=== PATIENT | female | born 1970 | race Caucasian/White ===

== ENCOUNTER 2017-03-09 08:01 | Inpatient (IN) | payer OTHER ==
--- NOTE | 2017-02-23 13:49 | HP ---
Admitting History and Physical - Primary Care Physician PCP: Jerrell Cohen - Admission Chief Complaint: High risk Breast cancer History of Present Illness: 46 year old premenapausal female of Ashkenazi heritage. She has a strong family H/O breast cancer. Her mother and maternal aunt both had breast cancer at ages 55 and 59 respectively. Her paternal grandmother also passed from breast cancer. Breast MRI 12/2016 [facility] 2 dense breast tissue and limited due to exstensive parenchymal enhancement. Feb 2016 an [facility] showed density left breast subareolar region which was biopsied and found to be a radial scar.She underwent excision 05/2016 and showed ruptured cyst fibroadenoma without atypia. Bilateral mammogram 05/2016 birad 2. History Source: Patient Limitations to Obtaining History: No Limitations - Past Medical History [employer]: Yes: Other (RLS and insomnia) - Past Surgical History Past Surgical History: Yes: Additional Past Surgical History: Left breast wide excision 2017 benign - Smoking History Smoking history: Never smoked Have you smoked in the past 12 months: No - Alcohol/Substance Use Hx Alcohol Use: Yes (3 per week) Home Medications - Allergies Allergies/Adverse Reactions: Allergies Allergy/AdvReac Type Severity Reaction Status Date / Time ampicillin Allergy Verified 02/23/17 13:51 Latex, Natural Rubber Allergy Verified 02/23/17 13:51 - Home Medications Home Medications (free text): gabapentin,alprazolam,norethinadrone Family Disease History - Family Disease History Family Disease History: CA: Grandparent (breast ca ), Mother (breast ca 55) Other Family History: mat aunt breast ca 59 Physical Examination Constitutional: Yes: Well Nourished Breast(s): Yes: Other (A cup breast with a well healed incision left breast superior periareolar incision from her biopsy no palpable dnesities bilaterally or adenopathy) Problem List - Problems (1) At high risk for breast cancer Code(s): Z91.89 - [facility] PERSONAL RISK FACTORS, NOT ELSEWHERE CLASSIFIED Assessment/Plan Bilateral total nipple sparing mastectomies with alloderm and implants
[2017-03-03 10:15] VITALS: BMI 18.5
[2017-03-09] MEDS ORDERED: fentaNYL CITRATE 250 MCG/5 ML VIAL ONE (08:45)
[2017-03-09] MEDS ORDERED: ePHEDrine SULFATE 50 MG/1 ML AMPULE ONE (08:45)
[2017-03-09] MEDS ORDERED: PROPOFOL 20 ML ONE ×3 (08:45→12:30)
[2017-03-09] MEDS ORDERED: SUCCINYLCHOLINE CHLORIDE 200 MG/10 ML VIAL ONE (08:46)
[2017-03-09] MEDS ORDERED: MIDAZOLAM HCL 2 MG/2 ML SINGLE DOSE VIAL ONE ×2 (08:46→09:04)
[2017-03-09] MEDS ORDERED: ROCURONIUM BROMIDE 50 MG/5 ML VIAL ONE ×3 (08:46→11:31)
[2017-03-09] MEDS ORDERED: LIDOCAINE HCL/PF 2% SDV 5ML VIAL ONE (08:49)
[2017-03-09] MEDS ORDERED: DEXAMETHASONE SOD PHOSPHATE 4 MG/1 ML VIAL ONE (08:49)
[2017-03-09] MEDS ORDERED: KETOROLAC TROMETHAMINE 30 MG/1 ML VIAL ONE (08:49)
[2017-03-09] MEDS ORDERED: ONDANSETRON 4 MG/2 ML VIAL ONE (08:49)
[2017-03-09] MEDS ORDERED: DEXAMETHASONE SOD PHOSPHATE/PF 10 MG/ML SDV ONE (09:03)
[2017-03-09] MEDS ORDERED: ROPIVACAINE HCL 0.5% 30ML VIAL ONE (09:04)
[2017-03-09] MEDS ORDERED: SCOPOLAMINE HYDROBROMIDE 1 PATCH PATCH.TD72 ONE (09:31)
[2017-03-09] MEDS ORDERED: ONDANSETRON 4 MG/2 ML VIAL IVPUSH PRN (12:07)
[2017-03-09] MEDS ORDERED: ACETAMINOPHEN 325 MG TABLET (FP) PO PRN (12:07)
[2017-03-09] MEDS ORDERED: ZOLPIDEM TARTRATE 5 MG TABLET PO PRN (12:07)
[2017-03-09] MEDS ORDERED: NEOSTIGMINE METHYLSULFATE 0.5 MG/ML - 10 ML MDV ONE (12:48)
[2017-03-09] MEDS ORDERED: LACTATED RINGERS SOLUTION 1,000 ML IV SCH (13:30)
[2017-03-09] MEDS ORDERED: oxyCODONE HCL 5 MG TABLET PO PRN (13:30)
[2017-03-09] MEDS ORDERED: ACETAMINOPHEN 325 MG TABLET (FP) ONE (13:50)
[2017-03-09] MEDS: ACETAMINOPHEN 325 MG TABLET (FP) PO SCH ×2 (13:50→20:46)
[2017-03-09] MEDS ORDERED: traMADol HCL 50 MG TABLET ONE (13:51)
[2017-03-09] MEDS: traMADol HCL 50 MG TABLET PO SCH ×2 (13:58→20:45)
[2017-03-09] MEDS: DEXTROSE 5%-0.45% SALINE 1,000 ML IV SCH (16:33)
--- NOTE | 2017-03-09 17:08 | OP ---
DATE OF OPERATION: 03/09/2017 PREOPERATIVE DIAGNOSIS: High risk for breast cancer with strong family history. POSTOPERATIVE DIAGNOSIS: High risk for breast cancer with strong family history. PROCEDURE: Bilateral total nipple-sparing mastectomies through an inframammary approach with bilateral direct-implant reconstructions with AlloDerm. ANESTHESIA: General endotracheal. PRIMARY SURGEON: Tramaine Schafer MD COVER OPERATOR: ALILE Penny PRIMARY SURGEON FOR THE BILATERAL DIRECT-IMPLANT RECONSTRUCTIONS WITH ALLODERM: Tramaine Thomas MD, with his speech pathology assistant, ALLIE Gage. COMPLICATIONS: None. Briefly, the patient is a 46-year-old, G2, P2, premenopausal white female of Ashkenazi-Episcopal heritage. She has a strong family history with her mother who had breast cancer at age 55, as well as a paternal grandmother who from breast cancer and a maternal aunt who had breast cancer at age 59. The patient herself tested BRCA negative in 2012. She has been getting close followup, and most recently underwent a left breast excision for a radial scar and was found to have a small fibroadenoma as well. The patient understood her increased risk for breast cancer and understood her options of just close surveillance but wanted to move forward with prophylactic risk-reduction mastectomy. She understood all risks and complications of the procedure including risks of skin flap necrosis, nipple loss, hematoma, and infection, which were all described to the patient, and she wanted to proceed with risk-reduction mastectomies. She was seen by the plastic surgeon preoperatively and understood the direct-implant reconstruction. She understood that we do retroareolar biopsies at the time of surgery, and as long as these biopsies show no cancer, we would spare the nipples. She understood the lack of any evidence shown for doing prophylactic sentinel lymph node biopsy. The patient was brought in for the procedure on March 09, 2017. In the holding area, site verification was made, and informed consent was obtained. She was marked preoperatively by the plastic surgeon. She did undergo bilateral pectoral nerve block in the holding area for postoperative pain control. DESCRIPTION OF PROCEDURE: She was then brought into the operating room, laid on the OR table in the supine position. Venodynes were placed on the lower extremities prior to induction. She did receive a gram of Ancef prior to incision. Both breasts were sterilely prepped and draped in the usual fashion. The left nipple-sparing mastectomy was first performed. An 8-cm incision was made just on the inframammary fold of the left breast and skin edges were everted and the breast was retracted inferiorly using Alloway clamps. The PEAK radiofrequency device was used to raise the skin flap superiorly to the level of the clavicle, medially to the level of the sternum, laterally to the level of the latissimus, and inferiorly below the level of the inframammary fold. The breast was taken down off the pectoralis major muscle using electrocautery from inferomedial to superolateral, completely removed intact. It was oriented with a long lateral, short superior suture and weighed to allow for appropriate cosmetic result. Retroareolar biopsy was taken underneath the left nipple-areolar complex, sent for frozen section, came back negative; so, the nipple was spared. Hemostasis was achieved, and the wound was copiously irrigated with warm sterile saline. At this point, the right mastectomy was performed, again through an inframammary approach, about an 8-cm incision in the inframammary fold. Again, the skin edges were everted, and the breast was retracted inferiorly using Grant clamps. The skin flap was raised using the PEAK radiofrequency device, raising the flap superiorly to the level of the clavicle, medially to the level of the sternum, laterally to the level of the latissimus, and inferiorly below the level of the inframammary fold. The breast was taken down off the pectoralis major muscle from inferomedial to superolateral, completely removed intact. It was oriented with a long lateral, short superior suture and weighed to allow for appropriate cosmetic result. Hemostasis was achieved, and the wound was copiously irrigated with warm sterile saline. A retroareolar biopsy was taken underneath the right nipple-areolar complex, sent for frozen section. It came back negative; so, the right nipple was spared as well. At this point, Dr. Thomas became the primary surgeon and performed bilateral direct-implant reconstructions in the subpectoral location using AlloDerm to allow for the 1-step reconstruction. Two Chuck drains were placed around each implant, brought through separate stab incisions on the lateral skin flaps, and secured in place using 3-0 nylon suture. All wounds were closed by Plastic Surgery using interrupted 3-0 deep dermal PDS suture and a running 4-0 subcuticular PDS suture. Mastisol and Steri-Strips were applied over the wounds, and the patient was placed in a compressive bra postoperatively. We did use the Spy skin perfusion device during the case, and there was some slight decreased perfusion around the inferior aspect around the left nipple, but this all filled in at about 1-1/2 minutes. The patient was placed in a surgical bra postoperatively after the wounds were closed. She was extubated and brought to the postanesthesia care unit in stable condition. Estimated blood loss was about 50 mL, and she was hemodynamically stable throughout. The patient will be recovered in the postanesthesia care unit and then be admitted postoperatively for pain management and wound management. Again, all sponge and needle counts were correct at the end of the case. TRAMAINE SCHAFER M.D. [id number]
[2017-03-09] MEDS ORDERED: GABAPENTIN 100 MG CAPSULE (FP) PO SCH (22:00)
[2017-03-09] MEDS ORDERED: PROGESTERONE MICRONIZED 100 MG PO SCH (22:00)
[2017-03-09] MEDS ORDERED: [UNRECOGNIZED DRUG - OTHER] PO SCH (22:00)
[2017-03-10] MEDS: traMADol HCL 50 MG TABLET PO SCH ×2 (03:15→09:24)
[2017-03-10] MEDS: ACETAMINOPHEN 325 MG TABLET (FP) PO SCH ×3 (03:15→14:21)
--- NOTE | 2017-03-10 07:25 | OP ---
DATE OF OPERATION: 03/09/2017 SURGEON: Tramaine Thomas MD PLANNING DIRECTOR SURGEON: Eugenio Taylor PA-C PREOPERATIVE DIAGNOSIS: Bilateral acquired chest wall deformity status post bilateral mastectomy. PROCEDURE: 1. Right immediate breast reconstruction utilizing immediate insertion of silicone breast implant and DermACELL reconstruction. 2. Left immediate breast reconstruction utilizing immediate insertion of silicone breast implant and DermACELL reconstruction. 3. Intravenous injection of isocyanide green dye and intraoperative diagnostic evaluation of non-coronary intraoperative fluorescein vascular angiography x 2. ANESTHESIA: GENERAL OPERATIVE PROCEDURE IN DETAIL: The patient was taken to the operating room. After induction of general anesthesia in the supine position, both arms were extended and padded. Venodyne boots were placed. The entire chest wall was painted with ChloraPrep solution over its entire extent, and sterile drapes were placed in the usual fashion. The markings, which had been made in the standing position preoperatively, were reoutlined with the patient's knowledge. Time-out procedure was performed. Attention was turned by Dr. Tramaine Cohen to the mastectomies. Bilateral inframammary incisions were made and Dr. Cohen performed mastectomies. This will be dictated under separate cover. Upon completion of the mastectomies, the wounds were copiously irrigated and attention was turned to the right breast. A subpectoral dissection was begun on the right breast, superiorly from the second rib, medially to the sternal fibers, and down to the inframammary fold, elevating the pectoralis major muscle from its insertion. At this point, an 8.0 x 16.0 AlloDerm Contour Perforated Medium sheet was brought into the field and sutured superiorly along the pectoralis major muscle after rehydration. This was carried along the lateral mammary fold and down the side of the breast reconstruction. At this point, a Natrell Inspira SRF 265 mL implant was chosen. The left breast tissue removed was 135 gm, and the right breast approximately 134 gm. This implant was placed and then sutured with 3-0 Vicryl suture continued along the inframammary fold, completely covering the implant itself. The exact same procedure was carried out symmetrically on the opposite breast, also placing a Natrell Inspira SRF 265 mL implant in the same subpectoral pocket. Good symmetry was seen in the sitting position. After the implants were in place, the patient was injected with 10 mL of Isocyanide green dye and the Spy imaging system with intraoperative angiogram x2 was brought into the field. The skin flowed to the right and left breasts and the nipple areolar complex, and the entire skin flaps were evaluated and seen to be viable with good blood flow. Two Saeid-Humphrey drains were brought out through separate stab wounds laterally. The Smart Infuser pump catheter was inserted medially and into the subpectoral position. Both wounds were closed symmetrically using 3-0 PDS suture on the deep tissue, 3-0 in a deep dermal fashion, and 4-0 in a subcuticular fashion. Both wounds were dressed sterilely with Mastisol and Steri-Strips with a surgical bra and a compression strap. The patient tolerated the procedure well. She was awakened, extubated and transferred to the recovery room in satisfactory condition. Dr. Cohen will dictate his separate portion of the operation under separate cover. The virtual customer assistant was present during the entire portion of the operation and closure. TRAMAINE THOMAS M.D. [id number]
[2017-03-10 08:21] LABS: HEMATOCRIT 33.6 % (32.4-45.2); HEMOGLOBIN 11.1 GM/dl (10.7-15.3); MCH 31.9 pg (25.7-33.7); MCHC 33.1 g/dl (32.0-36.0); MEAN CELL VOLUME 96.4 fl (80-96); MEAN PLT VOLUME 8.8 fl (7.5-11.1); PLATELET COUNT 188 K/MM3 (134-434); RBC 3.49 M/mm3 (3.60-5.2); RDW 11.8 % (11.6-15.6); WHITE BLOOD COUNT 11.7 K/mm3 (4.0-10.8)
--- NOTE | 2017-03-10 09:06 | PN ---
Progress Note, Physician Chief Complaint: S/P bilateral mastectomy with implant reconstruction POD#1 History of Present Illness: Patient seen this am and reports good pain control. She is tolerating po well and is otherwise without complaints. - Current Medication List Current Medications: Active Medications Acetaminophen (Tylenol -) 650 mg PO Q6H [facility] Last Admin: 03/10/17 03:15 Dose: 650 mg Fentanyl (Sublimaze Injection -) 50 mcg IVPUSH [id number] PRN PRN Reason: PAIN-PACU ORDER X 4 DOSES ONLY Last Admin: 03/09/17 13:28 Dose: 25 mcg Gabapentin (Neurontin -) 100 mg PO HS [facility] Last Admin: 03/09/17 22:02 Dose: Not Given Dextrose/Sodium Chloride (D5-1/2ns -) 1,000 mls @ 100 mls/hr IV ASDIR [facility] Last Admin: 03/09/17 16:33 Dose: Not Given Levofloxacin (Levaquin 500 Mg Premixed Ivpb -) 500 mg in 100 mls @ 100 mls/hr IVPB DAILY [facility] Lactated Ringer's (Lactated Ringers Solution) 1,000 mls @ 125 mls/hr IV ASDIR [facility] Last Admin: 03/09/17 16:33 Dose: Not Given Non-Formulary Medication (Progesterone, Micronized [Progesterone]) 100 mg PO HS [facility] Ondansetron HCl (Zofran Injection) 4 mg IVPUSH Q6H PRN PRN Reason: NAUSEA AND/OR VOMITING Oxycodone HCl (Roxicodone -) 10 mg PO Q4H PRN PRN Reason: PAIN LEVEL 6-10 Tramadol HCl (Ultram -) 50 mg PO Q6H [facility] Last Admin: 03/10/17 03:15 Dose: Not Given Zolpidem Tartrate (Ambien -) 5 mg PO HS PRN PRN Reason: Insomnia - Objective Vital Signs: Vital Signs Temperature 98.5 F 03/10/17 06:00 Pulse Rate 64 03/10/17 06:00 Respiratory Rate 18 03/10/17 06:00 Blood Pressure 101/55 03/10/17 06:00 O2 Sat by Pulse Oximetry (%) 99 03/10/17 06:00 Constitutional: Yes: Well Nourished, Calm Breast(s): Yes: Other (Mild ecchymosis noted bilaterally. Left nipple crusting noted without erythema or discharge noted. ROSEMARIE X4 with serosanginous discharge noted.) Problem List - Problems (1) At high risk for breast cancer Code(s): Z91.89 - [facility] PERSONAL RISK FACTORS, NOT ELSEWHERE CLASSIFIED Assessment/Plan Plan: S/P bilateral mastectomy with implant reconstruction POD#1 Assessment: OOB today with assistance Pain meds and axbx as ordered ROSEMARIE monitoring and teaching
--- NOTE | 2017-03-10 09:39 | PN ---
Progress Note (short form) - Note Progress Note: Anesthesiology Post-op/Pain Service POD#1 s/p bilateral mastectomy with peripheral nerve blocks. Pt. feels well, denies pain, denies n/v. VSS.
[2017-03-10] MEDS ORDERED: CLINDAMYCIN 300 MG PREMIX IVPB 300 MG/50 ML BAG IVPB SCH (10:00)
[2017-03-10] MEDS ORDERED: LEVOFLOXACIN 500 MG IVPB 500 MG/100 ML BAG IVPB SCH (10:00)
[2017-03-10] MEDS ORDERED: CLINDAMYCIN IVPB 300 MG in DEXTROSE 5%-WATER - 48 ML IVPB SCH (10:00)
--- NOTE | 2017-03-10 11:41 | PN ---
Progress Note, Physician Chief Complaint: POD #1 s/p bilateral mastectomies with direct implants and alloderm History of Present Illness: Pt is POD #1 s/p bilateral mastectomies with direct implants and alloderm. She is doing well with pain well controlled. Denies sob, difficulty breathing,fever , or chills. - Current Medication List Current Medications: Active Medications Acetaminophen (Tylenol -) 650 mg PO Q6H [facility] Last Admin: 03/10/17 09:22 Dose: 650 mg Gabapentin (Neurontin -) 100 mg PO HS [facility] Last Admin: 03/09/17 22:02 Dose: Not Given Dextrose/Sodium Chloride (D5-1/2ns -) 1,000 mls @ 100 mls/hr IV ASDIR [facility] Last Admin: 03/09/17 16:33 Dose: Not Given Lactated Ringer's (Lactated Ringers Solution) 1,000 mls @ 125 mls/hr IV ASDIR [facility] Last Admin: 03/09/17 16:33 Dose: Not Given Clindamycin Phosphate (Cleocin 300 Mg Premix Ivpb) 300 mg in 50 mls @ 100 mls/ hr IVPB Q8H-IV [facility] Last Admin: 03/10/17 10:51 Dose: 100 mls/hr Non-Formulary Medication (Progesterone, Micronized [Progesterone]) 100 mg PO HS [facility] Ondansetron HCl (Zofran Injection) 4 mg IVPUSH Q6H PRN PRN Reason: NAUSEA AND/OR VOMITING Oxycodone HCl (Roxicodone -) 10 mg PO Q4H PRN PRN Reason: PAIN LEVEL 6-10 Tramadol HCl (Ultram -) 50 mg PO Q6H [facility] Last Admin: 03/10/17 09:24 Dose: Not Given Zolpidem Tartrate (Ambien -) 5 mg PO HS PRN PRN Reason: Insomnia - Objective Vital Signs: Vital Signs Temperature 98.5 F 03/10/17 06:00 Pulse Rate 64 03/10/17 06:00 Respiratory Rate 18 03/10/17 06:00 Blood Pressure 101/55 03/10/17 06:00 O2 Sat by Pulse Oximetry (%) 99 03/10/17 08:00 Constitutional: Yes: Well Nourished, No Distress Eyes: Yes: WNL HENT: Yes: WNL Neck: Yes: WNL Cardiovascular: Yes: WNL Respiratory: Yes: WNL Gastrointestinal: Yes: WNL ...Rectal Exam: Yes: Deferred Genitourinary: Yes: WNL Breast(s): Yes: Other (Bilateral breasts with appropriate swelling and ecchymosis. No s/s of infection. VARGHESE drains holding suction. Nipple and areola with good perfusion.) Musculoskeletal: Yes: WNL Extremities: Yes: WNL Edema: No Integumentary: Yes: WNL Wound/Incision: Yes: Clean/Dry, Steri Strips Neurological: Yes: WNL ...Motor Strength: WNL Psychiatric: Yes: WNL Labs: CBC, BMP 03/10/17 07:30 - ....Imaging Other: Other (cont oob to chair cont pain management cont abx cont varghese drains to suction possible d/c home tomorrow)
[2017-03-10] MEDS: DEXTROSE 5%-0.45% SALINE 1,000 ML IV SCH (12:23)
[2017-03-10 14:14] VITALS: BP 101/65; PULSE 66; TEMP 98.2
--- NOTE | 2017-03-13 15:41 | PATH ---
Surgical Pathology Report Patient Name: KHUSHBU MALLOY Med. Rec. #: [id number] /Age/Gender: 1970 (Age: 46) / F Account: [id number] Location: [facility] MED-SURG Taken: 03/09/2017 Received: 03/09/2017 Reported: 03/13/2017 Physicians: Jerrell Cohen M.D. Specimen(s) Received A: RIGHT RETROAREOLAR BIOPSY. FS B: LEFT RETROAREOLAR BIOPSY. FS C: RIGHT MASTECTOMY D: LEFT MASTECTOMY Clinical History Bilateral prophylactic mastectomy Intraoperative Consult Diagnosis A. Right retroareolar biopsy, frozen section: Negative for malignancy. B. Left retroareolar biopsy, frozen section: Negative for malignancy. Jacquie Ortiz M.D., 03/09/17 Final Diagnosis A. RETROAREOLA, RIGHT, BIOPSY (FS): BENIGN BREAST TISSUE; NEGATIVE FOR MALIGNANCY. B. RETROAREOLA, LEFT, BIOPSY (FS): BENIGN BREAST TISSUE; NEGATIVE FOR MALIGNANCY. C. BREAST, RIGHT, NIPPLE-SPARING MASTECTOMY: BENIGN BREAST TISSUE SHOWING FIBROCYSTIC CHANGES INCLUDING CYSTIC APOCRINE METAPLASIA, MILD USUAL DUCTAL HYPERPLASIA (UDH) AND STROMAL FIBROSIS. D. BREAST, LEFT, NIPPLE-SPARING MASTECTOMY: BENIGN BREAST TISSUE SHOWING FIBROCYSTIC CHANGES INCLUDING CYSTIC APOCRINE METAPLASIA, MILD USUAL DUCTAL HYPERPLASIA (UDH) AND STROMAL FIBROSIS. Electronically Signed Indy Ortiz M.D. Gross Description A. Received fresh labeled "right retroareolar biopsy," is a 0.8 x 0.5 x 0.2 cm portion of red and pink soft tissue. A frozen section is performed on the tissue. The frozen section residue is entirely submitted in one cassette. B. Received fresh labeled "left retroareolar biopsy," is a 0.4 x 0.3 x 0.2 cm portion of red and pink soft tissue. A frozen section is performed on the tissue. The frozen section residue is entirely submitted in one cassette. C. Received in formalin, labeled "right mastectomy," is a 136 gram, 12.0 x 10.0 x 2.0 cm. right mastectomy specimen with a short suture marking the superior aspect and a long suture marking the lateral aspect of the specimen, per the surgeon. There is no skin present. The deep margin is inked black and the anterior soft tissue margin is inked blue. The specimen is serially sectioned from lateral to medial. Sectioning reveals abundant dense, white, firm fibrous tissue. [employer] sections are submitted in 14 cassettes as follows: 1-3-upper outer quadrant; 4-6-lower outer quadrant; 7-9-upper inner quadrant; 10-12-lower inner quadrant; 13-anterior soft tissue margin; 14-deep margin. Time to formalin fixation: 32 minutes Total formalin fixation time: Approximately 30 hours. D. Received in formalin, labeled "left mastectomy," is a 138 gram, 11.0 x 10.5 x 2.1 cm. left mastectomy specimen with a short suture marking the superior aspect and a long suture marking the lateral aspect of the specimen, per the surgeon. There is no skin present. The deep margin is inked black and the anterior soft tissue margin is inked blue. The specimen is serially sectioned from medial to lateral. Sectioning reveals abundant dense, white, firm fibrous tissue. [employer] sections are submitted in 14 cassettes as follows: 1-3-upper outer quadrant; 4-6-lower outer quadrant; 7-9-upper inner quadrant; 10-12-lower inner quadrant; 13-anterior soft tissue margin; 14-deep margin. Time to formalin fixation: 26 minutes Total formalin fixation time: Approximately 30 hours. ANICETO03/09/2017 saudi03/09/2017
== END 2017-03-10 19:00 | disposition home or self-care (01) | DRG 585 ==
LOC: FM/S 08:01
PROVIDERS: ADMIT Surgery Surgical Oncology; ATTEND Surgery Surgical Oncology
PROC: 0HTV0ZZ Resection of Bilateral Breast, Open Approach (ICD-10-PCS; principal; 2017-03-09 10:28)
PROC: 0HRV0JZ Replacement of Bilateral Breast with Synthetic Substitute, Open Approach (ICD-10-PCS; 2017-03-09 10:28)
DX: Z40.01 Encounter for prophylactic removal of breast (principal); G25.81 Restless legs syndrome; G47.09 Other insomnia; Z80.3 Family history of malignant neoplasm of breast
CPT/HCPCS: 36415; 84703; 85027; 88307-TC; 88331-TC; 94010; 94760